=== PATIENT | female | born 1990 | race Caucasian/White ===

== ENCOUNTER 2017-04-22 23:24 | Emergency (ER) | payer BC ==
[~2017-04-22 23:24] MED LIST: SYNTHROID50 MC1 PO
[2017-04-23] MEDS ORDERED: PYRIDIUM100 M2 PO (00:10)
[2017-04-23] MEDS ORDERED: BACTRIM DS TAB1 EAC2 PO (00:10)
[2017-04-23 00:55] LABS: URINE BILIRUBIN MODERATE (NEG); URINE BLOOD SMALL (NEG); URINE GLUCOSE (UA) NEGATIVE (NEG); URINE KETONE MODERATE (NEG); URINE LEUKOCYTE ESTERASE POSITIVE (NEG); URINE NITRITE POSITIVE (NEG); URINE PH 6.5 (5.0-8.0); URINE PROTEIN SMALL (NEG)
[2017-04-23 01:02] LABS: URINE APPEARANCE HAZY; URINE COLOR ORANGE
[2017-04-23 01:04] LABS: URINE BACTERIA 2+; URINE EPITHELIAL CELLS 0-2 /[HPF] (0-10)
[2017-04-23] MEDS ORDERED: ZOFRAN4 M2 PO (01:47)
[2017-04-23] MEDS ORDERED: CIPRO250 M2 PO (01:47)
== END 2017-04-23 01:50 ==
LOC: EDMED 23:24
PROVIDERS: Nurse Practitioner Family
DX: N39.0 Urinary tract infection, site not specified (principal); R31.9 Hematuria, unspecified; Z88.1 Allergy status to other antibiotic agents; Z87.891 Personal history of nicotine dependence; Z90.89 Acquired absence of other organs